=== PATIENT | male | born 1935 | race Caucasian/White ===

== ENCOUNTER → 2016-12-27 | Outpatient (CLI) | payer MEDICARE ==
[~2016-12-27] MED LIST: ASPIRIN 81MG TA81 MG PO; BISAC-EVAC10 MG PR; CEFUROXIME AXE500 MG PO; LEVAQUIN250 M1 PO; LEVSIN/SL0.125 MG SL; NIACIN1000 MG PO; NORVASC 5MG. TAB5 MG PO; PERCOCET 5/3251 EACH PO; PHENERGAN 25MG.25 M1 PO; PLAVIX75 MG PO; RAMIPRIL 10MG C10 MG PO; SIMVASTATIN40 MG PO
[2016-12-27 10:06] LABS: BUN 19 mg/dL (7-18)
[2016-12-27 10:10] LABS: GFR (ESTIMATED) 81 ML/MIN (>60); PROSTATE-SPECIFIC AG SCREEEN < 0.1 ng/mL (0.0-4.0)
[2016-12-28 10:38] LABS: Creatinine, Urine 121.6 mg/dL (Not Estab.); Microalbumin, Urine 3.6 ug/mL (Not Estab.)
== END ==
LOC: LAB 08:06
PROVIDERS: Physician Assistant
DX: E78.2 Mixed hyperlipidemia (principal); I10 Essential (primary) hypertension; Z85.46 Personal history of malignant neoplasm of prostate; Z13.29 Encounter for screening for other suspected endocrine disorder; Z12.5 Encounter for screening for malignant neoplasm of prostate
CPT/HCPCS: G0103

== ENCOUNTER → 2017-01-27 | Outpatient (CLI) | payer MEDICARE ==
--- NOTE | 2017-01-29 04:53 | RADIOLOGY REPORT PS360 ---
MRI-LOW EXT ANY JOINT W/O-LT HISTORY: Left knee pain medially LEFT MEDIAL KNEE PAIN ORDERING PHYSICIAN: Sergio Collins MD PATIENT AGE: 82 years COMPARISON: None TECHNIQUE: Standard multiplanar multiecho sequences are performed without contrast. FINDINGS: The cruciate ligaments, collateral ligaments, patellar tendon, and quadriceps tendon are intact. A complex tear involves posterior horn of the medial meniscus appearing to have both a horizontal and longitudinal component. The tear is nondisplaced. The lateral meniscus has an unremarkable appearance. 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 There is decreased T1 and increased T2 signal involving this superior aspect of the patella along the posterior surface. There is mild irregularity of patellar cartilage posteriorly. Small knee joint effusion. No fracture or dislocation evident. IMPRESSION: 1. Complex nondisplaced tear involves posterior horn the medial meniscus. 2. Focal increased T2 signal in the patella superiorly consistent with osteochondritis with some irregularity of the posterior patellar cartilage medially. 3. Small knee joint effusion with minimal osteoarthritic change.
== END ==
LOC: RAD 12:59
DX: M25.562 Pain in left knee (principal)